=== PATIENT | male | born 1970 | race Caucasian/White ===

== ENCOUNTER 2016-08-18 17:14 | Emergency (ER) | payer SELFPAY ==
[~2016-08-18] VITALS: Ht 193 cm; Wt 107.0 kg
[~2016-08-18 17:14] MED LIST: BUPR100T PO; LITH300 PO; LITH300C2 PO; METF500 PO
[2016-08-18 17:17] VITALS: BP 154/90; PULSE 107; RESP 15; TEMP 98.2; O2SAT 98
--- NOTE | 2016-08-18 17:43 | PD ---
HPI Chief Complaint: Psychiatric Symptoms Time Seen by Provider: 17:33 Travel History International Travel<30 days: No Contact w/Intl Traveler<30days: No Traveled to known affect area: No History of Present Illness HPI Patient comes in requesting psychiatric evaluation for suicidal ideations. Patient states that the past 3 months he's been drinking heavily which caused him to lose his job. Patient states he's had other stressors at home. Patient reports he has not took his medications in months. Patient reports he's had a history of suicide attempts in the past. Patient states his plan this time either to jump off the bridge or running into traffic, however he decided he try to get help instead. Patient states he tried to go to [facility], but they did not have any beds so he decided to come here. Patient denies any other medical concerns at this time. Denies any chest pain, shortness of breath , nausea, vomiting, abdominal pain, or fevers. PFSH Past Medical History Asthma: Yes Anxiety: Yes COPD: Yes Diabetes: Yes (NO MEDS) Patient Takes Glucophage: No Diminished Hearing: No Respiratory: Yes (COPD) Tetanus Vaccination: < 5 Years Past Surgical History Abdominal Surgery: Yes (hernia) Social History Alcohol Use: Yes (OCCASIONALLY) Tobacco Use: Yes (1/2 PPD) Substance Use: Yes (marijuana) Allergies-Medications (Allergen,Severity, Reaction): Coded Allergies: Amoxicillin (Verified Allergy, Severe, Anaphylaxis, 08/18/16) Amoxil (Verified Allergy, Severe, Anaphylaxis, 08/18/16) Penicillin (Verified Allergy, Severe, Anaphylaxis, 08/18/16) Reported Meds & Prescriptions Reported Meds & Active Scripts Active No Active Prescriptions or Reported Medications Review of Systems Except as stated in HPI: all other systems reviewed are Neg Physical Exam Narrative GENERAL: Well-developed, well nourished, in no acute distress, and non-ill appearing. SKIN: Focused skin assessment warm and dry. Superficial abrasion noted right auricle without any signs of infection. HEAD: Atraumatic. Normocephalic. EYES: Pupils equal and round. EOMI. No scleral icterus. No injection or drainage. ENT: No nasal bleeding or discharge. Mucous membranes pink and moist. NECK: Trachea midline. Supple. No nuclear rigidity. CARDIOVASCULAR: Regular rate and rhythm. No murmur appreciated. RESPIRATORY: No accessory muscle use. No respiratory distress. Clear to auscultation. Breath sounds equal bilaterally. MUSCULOSKELETAL: No obvious deformities. No clubbing. No cyanosis. No edema. Full range of motion. NEUROLOGICAL: Awake and alert. No obvious cranial nerve deficits. Motor grossly within normal limits. Normal speech. PSYCHIATRIC: Appropriate mood and affect; insight and judgment normal. Data Data Last Documented VS Vital Signs Date Time Temp Pulse Resp B/P Pulse Ox O2 Delivery O2 Flow Rate FiO2 08/18/16 17:17 98.2 107 15 154/90 98 Orders Complete Blood Count With Diff (08/18/16 17:26) Comprehensive Metabolic Panel (08/18/16 17:26) Psych Screen (08/18/16 17:26) Drug Screen, Random Urine (08/18/16 17:26) Alcohol (Ethanol) (08/18/16 17:26) Salicylates (Aspirin) (08/18/16 17:26) Tylenol (Acetaminophen) (08/18/16 17:26) [place] (Li) (08/18/16 17:30) Labs Laboratory Tests Test 08/18/16 08/18/16 17:35 17:45 White Blood Count 10.5 TH/MM3 Red Blood Count 5.51 MIL/MM3 Hemoglobin 17.5 GM/DL Hematocrit 52.4 % Mean Corpuscular Volume 94.9 FL Mean Corpuscular Hemoglobin 31.7 PG Mean Corpuscular Hemoglobin 33.4 % Concent Red Cell Distribution Width 13.8 % Platelet Count 175 TH/MM3 Mean Platelet Volume 10.2 FL Neutrophils (%) (Auto) 64.2 % Lymphocytes (%) (Auto) 23.6 % Monocytes (%) (Auto) 10.0 % Eosinophils (%) (Auto) 1.6 % Basophils (%) (Auto) 0.6 % Neutrophils # (Auto) 6.7 TH/MM3 Lymphocytes # (Auto) 2.5 TH/MM3 Monocytes # (Auto) 1.1 TH/MM3 Eosinophils # (Auto) 0.2 TH/MM3 Basophils # (Auto) 0.1 TH/MM3 CBC Comment DIFF FINAL Differential Comment Sodium Level 140 MEQ/L Potassium Level 3.7 MEQ/L Chloride Level 105 MEQ/L Carbon Dioxide Level 26.3 MEQ/L Anion Gap 9 MEQ/L Blood Urea Nitrogen 14 MG/DL Creatinine 0.98 MG/DL Estimat Glomerular Filtration 82 ML/MIN Rate Random Glucose 114 MG/DL Calcium Level 9.2 MG/DL Total Bilirubin 0.7 MG/DL Aspartate Amino Transf 17 U/L (AST/SGOT) Alanine Aminotransferase 22 U/L (ALT/SGPT) Alkaline Phosphatase 92 U/L Total Protein 7.1 GM/DL Albumin 4.0 GM/DL Salicylates Level 4.0 MG/DL Acetaminophen Level LESS THAN 2.0 MCG/ML [place] Level LESS THAN 0.1 MEQ/L Ethyl Alcohol Level LESS THAN 3 MG/DL Urine Opiates Screen NEG Urine Barbiturates Screen NEG Urine Amphetamines Screen NEG Urine Benzodiazepines Screen NEG Urine Cocaine Screen NEG Urine Cannabinoids Screen POS MDM Medical Decision Making Medical Screen Exam Complete: Yes Emergency Medical Condition: Yes Differential Diagnosis Suicidal ideations, homicidal ideations, alcohol intoxication, substance abuse, lithium toxicity, electrolyte abnormality, dehydration, other Narrative Course Patient was seen and examined. Labs were obtained and reviewed. Patient medically cleared for further treatment and evaluation by psych. Final disposition per psych. Diagnosis Primary Impression: Suicidal ideations Scripts No Active Prescriptions or Reported Meds Condition: Stable Jl Saldaña Aug 18, 2016 17:43
[2016-08-18 18:04] LABS: AUTOMATED NEUTROPHIL # 6.7 TH/MM3 (1.8-7.7); BASOPHIL # 0.1 TH/MM3 (0-0.2); BASOPHIL % 0.6 % (0.0-2.0); EOSINOPHIL # 0.2 TH/MM3 (0-0.4); EOSINOPHIL % 1.6 % (0.0-4.0); HEMATOCRIT 52.4 % (39.0-51.0); HEMO FLAGS DIFF FINAL; LYMPH % 23.6 % (9.0-44.0); LYMPHOCYTE # 2.5 TH/MM3 (1.0-4.8); MEAN CELL VOLUME 94.9 FL (80.0-100.0); MEAN CORPUSCULAR HEMOGLOBIN 31.7 PG (27.0-34.0); MEAN CORPUSCULAR HGB CONC 33.4 % (32.0-36.0); NEUT % 64.2 % (16.0-70.0); PLATELET COUNT 175 TH/MM3 (150-450); RED BLOOD COUNT 5.51 MIL/MM3 (4.50-5.90); RED CELL DISTRIBUTION WIDTH 13.8 % (11.6-17.2); WHITE BLOOD COUNT 10.5 TH/MM3 (4.0-11.0)
[2016-08-18 18:10] LABS: AMPHETAMINE, URINE NEG (NEG); BARBITURATES, URINE NEG (NEG); COCAINE, URINE NEG (NEG)
[2016-08-18 18:32] LABS: ALT (GPT) 22 U/L (12-78); ANION GAP 9 MEQ/L (5-15); AST (GOT) 17 U/L (15-37); BICARBONATE 26.3 MEQ/L (21.0-32.0); BLOOD UREA NITROGEN 14 MG/DL (7-18); CHLORIDE 105 MEQ/L (98-107); GLOMERULAR FILTRATION RATE 82 ML/MIN (>89); POTASSIUM 3.7 MEQ/L (3.5-5.1); SODIUM (NA) 140 MEQ/L (136-145)
[2016-08-18 18:35] LABS: ACETAMINOPHEN LESS THAN 2.0 MCG/ML (10.0-30.0); ALKALINE PHOSPHATASE 92 U/L (45-117); TOTAL BILIRUBIN ADULT 0.7 MG/DL (0.2-1.0)
[2016-08-18 19:47] VITALS: BP 131/84; PULSE 72; RESP 18; TEMP 98; O2SAT 96
[2016-08-19 02:29] VITALS: BP 124/84; PULSE 71; RESP 18; O2SAT 98
[2016-08-19 06:21] VITALS: BP 125/81; PULSE 76; RESP 18; O2SAT 98
[2016-08-19 10:00] VITALS: BP 126/62; PULSE 72; RESP 18
[2016-08-19 13:17] VITALS: BP 114/71; PULSE 74; RESP 18; O2SAT 96
[2016-08-19 18:00] VITALS: BP 125/71; PULSE 60; RESP 18
[2016-08-19 22:00] VITALS: BP 136/80; PULSE 67; RESP 20
[2016-08-20 02:22] VITALS: BP 123/86; PULSE 68; RESP 18; O2SAT 99
[2016-08-20 10:00] VITALS: BP 128/111; PULSE 77; RESP 18
[2016-08-20 14:00] VITALS: BP 128/73; PULSE 74; RESP 18
[2016-08-20 18:00] VITALS: BP 123/78; PULSE 69; RESP 18; TEMP 98.5
--- NOTE | 2016-08-20 19:30 | PD ---
History of Present Illness Chief Complaint: Psychiatric Symptoms Time Seen by Provider: 14:00 Travel History International Travel<30 Days: No Contact w/Intl Traveler<30days: No Known affected area: No Legal Status Legal Status: Voluntary History of Present Illness: 46-year-old male who is apparently homeless, threatening suicide if he does not get admitted. He is noted to be positive for marijuana but otherwise states he has no income, no job, etc. He would like to go to [facility] and states he went there previously but they had no beds. He is willing to wait to see if he can get in to that institution. This physician notes that the patient has good energy, good concentration, no depressed affect, no problems with sleep or appetite, etc. This physician feels the patient's suicidality is somewhat manipulative in order to get cared for. Patient is also asking to take a shower and he wants a different Jpod room. PFSH Past Medical History Asthma: Yes Anxiety: Yes COPD: Yes Diabetes: Yes (NO MEDS) Patient Takes Glucophage: No Diminished Hearing: No Respiratory: Yes (COPD) Tetanus Vaccination: < 5 Years Past Surgical History Abdominal Surgery: Yes (hernia) Psychiatric History Psychiatric History Hx Psychiatric Treatment: Patient with history of bipolar d/o. He states he had been treated at [facility] 4 mos. outpatient and several years ago inpatient. At this time, this physician sees no significant evidence of bipolar kirsten or bipolar depression. History of Inpatient Treatment: Yes Guns or firearms in home: No Social History Hx Alcohol Use: Yes (OCCASIONALLY) Hx Tobacco Use: Yes (1/2 PPD) Hx Substance Use: Yes Substance Use Type: Alcohol, Marijuana, Nicotine/Cigarettes Hx of Substance Use Treatment: No Allergies-Medications (Allergen,Severity, Reaction): Coded Allergies: Amoxicillin (Verified Allergy, Severe, Anaphylaxis, 08/18/16) Amoxil (Verified Allergy, Severe, Anaphylaxis, 08/18/16) Penicillin (Verified Allergy, Severe, Anaphylaxis, 08/18/16) Reported Meds & Prescriptions Reported Meds & Active Scripts Active No Active Prescriptions or Reported Medications Review of Systems Except as stated in HPI: all other systems reviewed are Neg Exam Alert: Yes [place]: Person, Place, Date, Situation Mood: Calm Affect: Euthymic Speech: Clear, Logical Eye Contact: Normal Memory Intact: Immediate, Recent, Remote Suicidal: Plan, Ideation Insight/Judgement Adequate MDM Medical Decision Making Medical Record Reviewed: Yes Assessment/Plan Patient to be allowed to stay here overnight for evaluation and determination of placement. However, this physician does not feel he requires inpatient psychiatric hospitalization. This physician finds the patient to be manipulative due to his homelessness and drug abuse. Orders Diet Regular Basic (08/20/16 Breakfast) Diet Regular Basic (08/20/16 Dinner) Diet Regular Basic (08/20/16 Lunch) Results Vital Signs Date Time Temp Pulse Resp B/P Pulse Ox O2 Delivery O2 Flow Rate FiO2 08/20/16 18:00 98.5 69 18 123/78 Room Air 08/20/16 14:00 74 18 128/73 Room Air 08/20/16 10:00 77 18 128/111 Room Air 08/20/16 02:22 68 18 123/86 99 08/19/16 22:00 67 20 136/80 Diagnosis Primary Impression: Adjustment disorder with mixed disturbance of emotions and conduct Additional Impression: Marijuana abuse Prescriptions No Active Prescriptions or Reported Meds Condition: Stable Problem Qualifiers Mayur Pham MD Aug 20, 2016 19:30
[2016-08-20 22:00] VITALS: BP 117/75; PULSE 78; RESP 18
[2016-08-21 01:51] VITALS: BP 108/62; PULSE 75; RESP 18
[2016-08-21 06:02] VITALS: BP 129/72; PULSE 67; RESP 18
[2016-08-21 11:04] VITALS: BP 123/74; PULSE 76; RESP 18; O2SAT 98
--- NOTE | 2016-08-21 15:40 | PD ---
History of Present Illness Chief Complaint: Psychiatric Symptoms Time Seen by Provider: 15:30 Travel History International Travel<30 Days: No Contact w/Intl Traveler<30days: No Known affected area: No Legal Status Legal Status: Voluntary History of Present Illness: Patient still asking to be admitted to [facility] and still states he will kill himself if he is not admitted there. He is again noted to have a pleasant affect and no depressed mood when he is unaware of being evaluated. His sleep is intact. His appetite is good. He has appropriate energy. In other words, he does not appear to be suffering from a true major depression but continues to present as someone who is manipulative and wants to be admitted because he is homeless. This physician spoke at length with the patient's nurse, Lana , and this units nursing division supervisor, Indigo. We have called [facility] on multiple occasions and been given contradictory information including the fact that he was #1 on their admission list and now he has dropped to #8. They have indicated that if he walks into their clinic they will evaluate him for further treatment and disposition. As the patient is voluntary, this physician cannot in good conscience [place] act him. Therefore, he will be discharged and assisted to [facility] for further evaluation. This was agreed to by the registered nursing professor. PFSH Past Medical History Asthma: Yes Anxiety: Yes COPD: Yes Diabetes: Yes (NO MEDS) Patient Takes Glucophage: No Diminished Hearing: No Respiratory: Yes (COPD) Tetanus Vaccination: < 5 Years Past Surgical History Abdominal Surgery: Yes (hernia) Psychiatric History Psychiatric History Hx Psychiatric Treatment: Patient with history of bipolar d/o. He states he had been treated at [facility] 4 mos. outpatient and several years ago inpatient. At this time, this physician sees no significant evidence of bipolar kirsten or bipolar depression. History of Inpatient Treatment: Yes Guns or firearms in home: No Social History Hx Alcohol Use: Yes (OCCASIONALLY) Hx Tobacco Use: Yes (1/2 PPD) Hx Substance Use: Yes Substance Use Type: Alcohol, Marijuana, Nicotine/Cigarettes Hx of Substance Use Treatment: No Allergies-Medications (Allergen,Severity, Reaction): Coded Allergies: Amoxicillin (Verified Allergy, Severe, Anaphylaxis, 08/18/16) Amoxil (Verified Allergy, Severe, Anaphylaxis, 08/18/16) Penicillin (Verified Allergy, Severe, Anaphylaxis, 08/18/16) Reported Meds & Prescriptions Reported Meds & Active Scripts Active No Active Prescriptions or Reported Medications MDM Medical Decision Making Medical Record Reviewed: Yes Assessment/Plan Will discharge patient to be evaluated as a walk-in at [facility]. Orders Diet Diabetic (08/21/16 Breakfast) Diet Regular Basic (08/21/16 Lunch) Results Vital Signs Date Time Temp Pulse Resp B/P Pulse Ox O2 Delivery O2 Flow Rate FiO2 08/21/16 11:04 76 18 123/74 98 Room Air 08/21/16 06:02 67 18 129/72 08/21/16 01:51 75 18 108/62 08/20/16 22:00 78 18 117/75 Room Air 08/20/16 18:00 98.5 69 18 123/78 Room Air Diagnosis Primary Impression: Adjustment disorder with mixed disturbance of emotions and conduct Additional Impressions: Marijuana abuse Malingering Prescriptions No Active Prescriptions or Reported Meds Condition: Stable Problem Qualifiers Mayur Pham MD Aug 21, 2016 15:39
== END 2016-08-21 17:19 | disposition home or self-care (01) ==
LOC: NEPD 17:14 → NEPJ 08-21 17:19
DX: R45.851 Suicidal ideations (principal); J45.909 Unspecified asthma, uncomplicated; E11.9 Type 2 diabetes mellitus without complications; F43.25 Adjustment disorder with mixed disturbance of emotions and conduct; F12.10 Cannabis abuse, uncomplicated; Z76.5 Malingerer [conscious simulation]; F17.210 Nicotine dependence, cigarettes, uncomplicated; Z59.0 Homelessness
CPT/HCPCS: 80053; 80178; 80307; 85025; 99283

== ENCOUNTER 2016-08-23 12:05 | Emergency (ER) | payer OTHER ==
[~2016-08-23] VITALS: Ht 190.5 cm; Wt 102.0 kg
[2016-08-23 12:18] VITALS: BP 133/93; PULSE 95; RESP 17; TEMP 97.8; O2SAT 97
--- NOTE | 2016-08-23 13:22 | PD ---
HPI . Chronic alcohol abuse and suicidal ideation Chief Complaint: Psychiatric Symptoms Time Seen by Provider: 12:18 Travel History International Travel<30 days: No Contact w/Intl Traveler<30days: No Traveled to known affect area: No History of Present Illness HPI This patient presents as a [place] Act for suicidal ideation. The patient reports that he is a long-term chronic alcoholic. He states that he has recently lost his job because of his alcoholism. He states that he needs help with his drinking. He states that he is suicidal as a result of his chronic drinking problem. PFSH Past Medical History Asthma: Yes Anxiety: Yes COPD: Yes Diabetes: Yes (NO MEDS) Diminished Hearing: No Respiratory: Yes (COPD) Past Surgical History Abdominal Surgery: Yes (hernia) Social History Alcohol Use: Yes (OCCASIONALLY) Tobacco Use: Yes (1/2 PPD) Substance Use: Yes Allergies-Medications (Allergen,Severity, Reaction): Coded Allergies: Amoxicillin (Verified Allergy, Severe, Anaphylaxis, 08/23/16) Amoxil (Verified Allergy, Severe, Anaphylaxis, 08/23/16) Penicillin (Verified Allergy, Severe, Anaphylaxis, 08/23/16) Reported Meds & Prescriptions Reported Meds & Active Scripts Active No Active Prescriptions or Reported Medications Review of Systems Except as stated in HPI: all other systems reviewed are Neg Psychiatric: Positive: Depression, Suicidal Ideations, Mood Disorder, Substance Abuse Physical Exam Narrative GENERAL: Awake and alert and in no acute distress. SKIN: Warm and dry. HEAD: Atraumatic. Normocephalic. EYES: Pupils equal and round. NECK: Trachea midline. CARDIOVASCULAR: Regular rate and rhythm. RESPIRATORY: No accessory muscle use. MUSCULOSKELETAL: No obvious deformities. No edema. NEUROLOGICAL: Awake and alert. No obvious cranial nerve deficits. Motor grossly within normal limits. Normal speech. PSYCHIATRIC: Appropriate mood and affect. He does not appear to be acutely intoxicated. His judgment is poor in that he feels suicidal. Data Data Last Documented VS Vital Signs Date Time Temp Pulse Resp B/P Pulse Ox O2 Delivery O2 Flow Rate FiO2 08/23/16 12:18 97.8 95 17 133/93 97 Orders Psych Screen (08/23/16 12:21) Drug Screen, Random Urine (08/23/16 12:21) Alcohol (Ethanol) (08/23/16 12:21) Labs Laboratory Tests Test 08/23/16 12:46 Ethyl Alcohol Level 128 MG/DL [facility] Medical Decision Making Medical Screen Exam Complete: Yes Emergency Medical Condition: Yes Medical Record Reviewed: Yes (this patient has had a very recent visit here for similar circumstances. He had labs done at that time. The only lab that I repeated was his alcohol level.) Differential Diagnosis Differential diagnosis includes but is not limited to depression with suicidal gesture, suicide attempt, suicidal ideation, attention seeking behavior. Narrative Course This patient presents as a [place] Act complaining with suicidal ideation and alcoholism. Alcohol level today is 128. This patient is medically clear for psychiatric evaluation. Diagnosis Primary Impression: Suicidal ideations Scripts No Active Prescriptions or Reported Meds Condition: Stable Vanessa Macdonald MD Aug 23, 2016 13:22
[2016-08-23 13:42] LABS: AMPHETAMINE, URINE NEG (NEG); BARBITURATES, URINE NEG (NEG); COCAINE, URINE NEG (NEG)
--- NOTE | 2016-08-23 15:13 | PD ---
History of Present Illness Chief Complaint: Psychiatric Symptoms Time Seen by Provider: 15:00 Travel History International Travel<30 Days: No Contact w/Intl Traveler<30days: No Known affected area: No Legal Status Legal Status: [place] Act [place] Act Signed By: History of Present Illness: This is a 46-year-old male who is well known to this physician from previous ED visits with threats of suicide and demands for drug detox and drug rehabilitation. The patient is once again threatening suicide and wants to be admitted to [facility] for drug detox and drug rehabilitation. This physician therefore lifted the [place] acted and placed the patient under a physician certificate. Patient's drug abuse has led him to a breakup of his relationships, loss of job, homelessness, etc. While this physician understands the patient may indeed do something to harm himself, it is counter therapeutic to admit him to psychiatry. PFSH Past Medical History Asthma: Yes Bipolar Disorder: Yes Anxiety: Yes Depression: Yes COPD: Yes Diabetes: Yes (NO MEDS) Patient Takes Glucophage: No Diminished Hearing: No Psychiatric: Yes Respiratory: Yes (COPD) Tetanus Vaccination: < 5 Years Influenza Vaccination: No Past Surgical History Abdominal Surgery: Yes (hernia) Psychiatric History Psychiatric History Hx Psychiatric Treatment: Patient with history of bipolar d/o. He states he had been treated at [facility] 4 mos. outpatient and several years ago inpatient. At this time, this physician sees no significant evidence of bipolar kirsten or bipolar depression. Once again, this physician finds no significant evidence of bipolar disorder in his presentation. History of Inpatient Treatment: Yes Social History Hx Alcohol Use: Yes (OCCASIONALLY) Hx Tobacco Use: Yes (1/2 PPD) Hx Substance Use: Yes (MARIJUANA) Substance Use Type: Alcohol, Marijuana, Nicotine/Cigarettes Hx of Substance Use Treatment: Yes Allergies-Medications (Allergen,Severity, Reaction): Coded Allergies: Amoxicillin (Verified Allergy, Severe, Anaphylaxis, 08/23/16) Amoxil (Verified Allergy, Severe, Anaphylaxis, 08/23/16) Penicillin (Verified Allergy, Severe, Anaphylaxis, 08/23/16) Reported Meds & Prescriptions Reported Meds & Active Scripts Active No Active Prescriptions or Reported Medications Review of Systems Except as stated in HPI: all other systems reviewed are Neg Exam Alert: Yes [place]: Person, Place, Date, Situation Mood: Calm Affect: Euthymic Speech: Clear, Logical Eye Contact: Normal Memory Intact: Immediate, Recent, Remote Suicidal: Plan Insight/Judgement Adequate except with regard to substance abuse. MDM Medical Decision Making Medical Record Reviewed: Yes Assessment/Plan [place] act being lifted. Patient being referred to [facility] once again, this time under physician's certificate. Orders Psych Screen (08/23/16 12:21) Drug Screen, Random Urine (08/23/16 12:21) Alcohol (Ethanol) (08/23/16 12:21) Results Vital Signs Date Time Temp Pulse Resp B/P Pulse Ox O2 Delivery O2 Flow Rate FiO2 08/23/16 12:18 97.8 95 17 133/93 97 08/23/16 12:18 17 Laboratory Tests Test 08/23/16 08/23/16 12:46 13:10 Ethyl Alcohol Level 128 Urine Opiates Screen NEG Urine Barbiturates Screen NEG Urine Amphetamines Screen NEG Urine Benzodiazepines Screen NEG Urine Cocaine Screen NEG Urine Cannabinoids Screen NEG Diagnosis Primary Impression: Multiple substance abuse Prescriptions No Active Prescriptions or Reported Meds Condition: Stable Mayur Pham MD Aug 23, 2016 15:13
[2016-08-23 15:35] VITALS: BP 122/77; TEMP 97.8
== END 2016-08-23 15:38 | disposition short-term general hospital (02) ==
LOC: NEPD 12:05
DX: R45.851 Suicidal ideations (principal); F10.20 Alcohol dependence, uncomplicated; F17.210 Nicotine dependence, cigarettes, uncomplicated; F12.90 Cannabis use, unspecified, uncomplicated; Z59.0 Homelessness; Z56.0 Unemployment, unspecified
CPT/HCPCS: 80307; 99285